=== PATIENT | male | born 1955 | race Caucasian/White ===

== ENCOUNTER 2023-01-20 17:29 | Emergency (ER) | payer OTHER ==
[2023-01-20] MEDS ORDERED: ACETAMINOPHEN 500 MG TABLET (FP) PO ONE (17:48)
[2023-01-20 17:49] VITALS: RESP 16; BMI 25.1
[2023-01-20] MEDS ORDERED: KETOROLAC TROMETHAMINE 15 MG/ML VIAL IM ONE (17:49)
[2023-01-20] MEDS ORDERED: LIDOCAINE 5% TOPICAL PATCH TP ONE (17:49)
[2023-01-20] MEDS ORDERED: ACETAMINOPHEN 325 MG TABLET (FP) ONE (17:51)
[2023-01-20] MEDS ORDERED: KETOROLAC TROMETHAMINE 15 MG/ML VIAL ONE (17:52)
[2023-01-20] MEDS ORDERED: LIDOCAINE 5% TOPICAL PATCH ONE (17:52)
[2023-01-20 18:28] LABS: HEMATOCRIT 42.5 % (35.4-49); HEMOGLOBIN 14.5 G/dL (11.7-16.9); MCH 28.3 pg (25.7-33.7); MCHC 34.1 g/dl (32.0-35.9); MEAN PLT VOLUME 8.6 fl (7.5-11.1); PLATELET COUNT 236.2 10^3/uL (134-434); RBC 5.12 10^6/uL (4.00-5.60); RDW 14.1 % (11.9-15.9); WHITE BLOOD COUNT 5.6 10^3/uL (4.0-10.8)
[2023-01-20 18:53] LABS: ALBUMIN 3.8 g/dl (3.4-5.0); BILIRUBIN,TOTAL 0.7 mg/dl (0.2-1); CALCIUM 9.1 mg/dl (8.5-10); CREATININE 0.8 mg/dl (0.55-1.3); POTASSIUM 4.1 mmol/L (3.5-5.1); TOT PROT 6.3 g/dl (6.4-8.2)
[2023-01-20] MEDS ORDERED: SODIUM CHLORIDE 0.9% 500 ML INFUS.BAG IV ONE (18:55)
[2023-01-20] MEDS ORDERED: morphine CARPU-JECT 4 MG/1 ML DISP.SYRIN IVPUSH ONE (19:09)
[2023-01-20 19:18] VITALS: TEMP 98.8
[2023-01-20] MEDS ORDERED: morphine SULFATE 4 MG/ML VIAL ONE (19:19)
[2023-01-20 19:56] LABS: VENOUS BASE EXCESS -0.8 mmol/L (-2-2); VENOUS O2 SATURATION 97.5 % (70-80); VENOUS PCO2 34.5 mmHg (38-52); VENOUS PH 7.436 (7.310-7.410)
[2023-01-20] MEDS ORDERED: SODIUM CHLORIDE 1,000 ML IV STA (20:19)
[2023-01-20 21:26] LABS: PLATELET ESTIMATE ADEQUATE
[2023-01-20 21:46] VITALS: BP 153/92; PULSE 76
[2023-01-20] MEDS ORDERED: LIDOCAINE PATCH REMOVAL MC SCH (22:00)
== END 2023-01-20 23:51 | disposition left against medical advice (07) ==
LOC: FER 17:29
PROC: 3E033GC Introduction of Other Therapeutic Substance into Peripheral Vein, Percutaneous Approach (ICD-10-PCS; principal; 2023-01-20)
PROC: 3E0337Z Introduction of Electrolytic and Water Balance Substance into Peripheral Vein, Percutaneous Approach (ICD-10-PCS; 2023-01-20)
PROC: 3E0233Z Introduction of Anti-inflammatory into Muscle, Percutaneous Approach (ICD-10-PCS; 2023-01-20)
DX: M54.31 Sciatica, right side (principal); E11.65 Type 2 diabetes mellitus with hyperglycemia; M79.10 Myalgia, unspecified site; B35.1 Tinea unguium; R11.10 Vomiting, unspecified; M79.671 Pain in right foot; M79.672 Pain in left foot; Z20.822 Contact with and (suspected) exposure to COVID-19
CPT/HCPCS: 0241U-QW; 36415; 71045-TC-FY; 74177-TC; 80053; 82803; 82962; 83036; 83690; 85027; 93005; 99285-25; Q9967

== ENCOUNTER 2023-03-06 12:38 | Emergency (ER) | payer OTHER ==
[2023-03-06 13:28] VITALS: BP 147/82; PULSE 86; RESP 20; TEMP 98.2; BMI 25.1
[2023-03-06] MEDS ORDERED: KETOROLAC TROMETHAMINE 60 MG/2 ML VIAL IM ONE (13:41)
[2023-03-06] MEDS ORDERED: LIDOCAINE 5% TOPICAL PATCH TP ONE (13:45)
[2023-03-06] MEDS ORDERED: LIDOCAINE 5% TOPICAL PATCH ONE (13:48)
[2023-03-06] MEDS ORDERED: KETOROLAC TROMETHAMINE 30 MG/1 ML VIAL ONE (13:48)
[2023-03-06] MEDS ORDERED: LIDOCAINE PATCH REMOVAL MC SCH (22:00)
== END 2023-03-06 14:40 | disposition home or self-care (01) ==
LOC: FER 12:38
PROC: 3E0233Z Introduction of Anti-inflammatory into Muscle, Percutaneous Approach (ICD-10-PCS; principal; 2023-03-06)
DX: M54.41 Lumbago with sciatica, right side (principal)
CPT/HCPCS: 99284-25

== ENCOUNTER 2023-03-20 18:10 | Emergency (ER) | payer OTHER ==
[2023-03-20 18:21] VITALS: BP 130/81; PULSE 88; RESP 16; TEMP 97.8; BMI 25.1
[2023-03-20] MEDS ORDERED: VANCOMYCIN 1 GM in D5W (PRE-DOCKED) 1,000 MG/250 ML (RESTRICTED TO ID ONLY IVPB ONE (18:56)
[2023-03-20] MEDS ORDERED: CEFEPIME HCL/D5W 1 GM/50 ML BAG IVPB ONE (18:56)
[2023-03-20 19:17] LABS: HEMATOCRIT 39.5 % (35.4-49); HEMOGLOBIN 13.9 G/dL (11.7-16.9); MCH 29.5 pg (25.7-33.7); MCHC 35.3 g/dl (32.0-35.9); MEAN CELL VOLUME 83.6 fl (80-96); MEAN PLT VOLUME 7.4 fl (7.5-11.1); PLATELET COUNT 228.2 10^3/uL (134-434); RBC 4.72 10^6/uL (4.00-5.60); WHITE BLOOD COUNT 5.9 10^3/uL (4.0-10.8)
[2023-03-20] MEDS ORDERED: VANCOMYCIN 1,000 MG VIAL (RESTRICTED TO ID ONLY) ONE (19:20)
[2023-03-20 19:47] LABS: ALK PHOS 146 U/L (45-117); ANION GAP 11 MMOL/L (8-16); BILIRUBIN,TOTAL 0.8 mg/dl (0.2-1); BLOOD UREA NITROGEN 17.6 mg/dl (7-18); CALCIUM 9.2 mg/dl (8.5-10.1); CHLORIDE 98 mmol/L (98-107); CO2 24 mmol/L (21-32); CREATININE 0.9 mg/dl (0.6-1.3); POTASSIUM 4.1 mmol/L (3.5-5.1); SGOT/AST 10.2 U/L (15-37); SGPT/ALT 13.4 U/L (7-52); SODIUM 133 mmol/L (136-145); TOT PROT 6.1 g/dl (6.4-8.2)
[2023-03-20 20:00] LABS: GLUCOSE,RANDOM 509 mg/dl (74-106)
[2023-03-20] MEDS ORDERED: INSULIN REGULAR HUMAN 100 UNITS/ML *VIAL SQ ONE (20:05)
[2023-03-20 20:13] LABS: ERYTHROCYTE SEDIMENTATION RATE 23 mm/hr (0-20)
[2023-03-20] MEDS ORDERED: INSULIN REGULAR HUMAN 100 UNITS/ML *VIAL ONE (20:13)
[2023-03-20 20:14] LABS: PLATELET ESTIMATE ADEQUATE
== END 2023-03-20 22:28 | disposition left against medical advice (07) ==
LOC: FER 18:10
PROC: 3E023GC Introduction of Other Therapeutic Substance into Muscle, Percutaneous Approach (ICD-10-PCS; principal; 2023-03-20)
PROC: 3E033GC Introduction of Other Therapeutic Substance into Peripheral Vein, Percutaneous Approach (ICD-10-PCS; principal; 2023-03-20)
DX: L03.116 Cellulitis of left lower limb (principal); E11.628 Type 2 diabetes mellitus with other skin complications
CPT/HCPCS: 36415; 73630-TC-LT; 80053; 82962; 85027; 85651; 86140; 93005; 99285-25

== ENCOUNTER 2023-03-30 17:32 | Emergency (ER) | payer OTHER ==
[2023-03-30 17:49] VITALS: BP 134/74; PULSE 86; RESP 18; TEMP 98; BMI 25.1
[2023-03-30] MEDS ORDERED: NAPROXEN 500 MG TABLET PO ONE (18:07)
[2023-03-30] MEDS ORDERED: NAPROXEN 500 MG TABLET ONE (18:13)
== END 2023-03-30 20:25 | disposition home or self-care (01) ==
LOC: FER 17:32
DX: E11.621 Type 2 diabetes mellitus with foot ulcer (principal); L97.529 Non-pressure chronic ulcer of other part of left foot with unspecified severity; M79.672 Pain in left foot
CPT/HCPCS: 73630-TC-LT; 82962; 99283-25

== ENCOUNTER 2023-04-02 17:32 | Emergency (ER) | payer OTHER ==
[2023-04-02 18:07] VITALS: BP 132/82; PULSE 86; RESP 18; TEMP 98.3; BMI 25.2
[2023-04-02] MEDS ORDERED: ACETAMINOPHEN 500 MG TABLET (FP) PO ONE (18:28)
[2023-04-02] MEDS ORDERED: ACETAMINOPHEN 325 MG TABLET (FP) ONE (18:39)
== END 2023-04-02 19:23 | disposition home or self-care (01) ==
LOC: FER 17:32
DX: M79.672 Pain in left foot (principal); R19.7 Diarrhea, unspecified; S91.302A Unspecified open wound, left foot, initial encounter; L97.429 Non-pressure chronic ulcer of left heel and midfoot with unspecified severity; X58.XXXA Exposure to other specified factors, initial encounter
CPT/HCPCS: 99283-25

== ENCOUNTER 2023-04-05 09:21 | Emergency (ER) | payer OTHER ==
[2023-04-05 09:47] VITALS: BP 120/66; PULSE 90; RESP 18; TEMP 97.5; BMI 25.1
[2023-04-05] MEDS ORDERED: ACETAMINOPHEN 325 MG TABLET (FP) PO ONE (10:08)
[2023-04-05] MEDS ORDERED: ACETAMINOPHEN 500 MG TABLET (FP) ONE (10:17)
== END 2023-04-05 12:02 | disposition home or self-care (01) ==
LOC: FER 09:21
DX: M79.672 Pain in left foot (principal); L97.421 Non-pressure chronic ulcer of left heel and midfoot limited to breakdown of skin
CPT/HCPCS: 73630-TC-LT; 73630-TC-RT-FY; 82962; 99283-25

== ENCOUNTER 2023-05-06 13:14 | Emergency (ER) | payer OTHER ==
[2023-05-06 13:41] VITALS: BP 142/71; PULSE 74; RESP 16; TEMP 97.7; BMI 25.0
[2023-05-06] MEDS ORDERED: MAGNESIUM CITRATE 300 ML BOTTLE PO ONE (14:20)
[2023-05-06] MEDS ORDERED: MAGNESIUM CITRATE 300 ML BOTTLE ONE (14:23)
== END 2023-05-06 14:30 | disposition home or self-care (01) ==
LOC: FER 13:14
DX: K59.00 Constipation, unspecified (principal); M79.604 Pain in right leg; M79.605 Pain in left leg; R10.30 Lower abdominal pain, unspecified
CPT/HCPCS: 99283-25